=== PATIENT | female | born 1970 | race Caucasian/White ===

== ENCOUNTER 2016-11-13 07:45 | Emergency (ER) | payer OTHER ==
[2016-11-13] MEDS ORDERED: OPTIRAY 350 100 ML VIAL HMH IV ONE (07:46)
[2016-11-13] MEDS ORDERED: ONDANSETRON 4 MG VIAL ONE (08:38)
[2016-11-13] MEDS ORDERED: DILAUDID 1 MG/ML AMP ONE ×2 (08:39→12:23)
[2016-11-13] MEDS ORDERED: SODIUM CHLORIDE 0.9% 1,000 ML ONE (10:02)
[2016-11-13] MEDS ORDERED: CEFTRIAXONE 1 GM VIAL ONE (12:23)
== END 2016-11-13 15:22 | disposition home or self-care (01) ==
LOC: ER 07:45
CPT/HCPCS: 36415 ×2; 71010 ×2; 71260 ×2; 80053 ×2; 82553 ×2; 83880 ×2; 84484 ×2; 85025 ×2; 85379 ×2; 85610 ×2; 85730 ×2; 93005 ×2; 96361; 96365; 96366; 96375; 96376; J0696; J1170; J2405; Q9967